=== PATIENT | male | born 1970 | race Two or more races ===

== ENCOUNTER 2020-07-06 18:09 | Emergency (ER) | payer SELFPAY ==
--- NOTE | 2020-07-06 18:15 | EDM.PDOC ---
ED HPI GENERAL MEDICAL PROBLEM - General Chief Complaint: General Stated Complaint: DEHYDRATION Time Seen by Provider: 07/06/20 18:15 Source of Information: Reports: Patient History Limitations: Reports: No Limitations - History of Present Illness INITIAL COMMENTS - FREE TEXT/NARRATIVE: HISTORY AND PHYSICAL: History of present illness: Patient is a 49-year-old female who presents to the emergency room with complaints of generalized abdominal pain, chills, "cold head" and diaphoresis. States over the past few days he has not been able to have a bowel movement, took some laxatives and states he had a small amount of stool over the past two days. Today started to experience chills throughout his body and he "felt very very cold" (touching his stomach and states it goes up to his head). Patient does have some mild nausea without vomiting. EMS gave Zofran in route. Patient denies any headache, change in vision, syncope or near syncope. Denies any chest pain, back pain, shortness of breath or cough. Denies any dysuria, nor blood in urine or stool. Patient has been eating and drinking appropriately. [employer] translation services was used for communication purposes: [place] speaking Review of systems: As per history of present illness and below otherwise all systems reviewed and negative. Past medical history: As per history of present illness and as reviewed below otherwise noncontributory. Surgical history: As per history of present illness and as reviewed below otherwise noncontributory. Social history: See social history for further information Family history: As per history of present illness and as reviewed below otherwise noncontributory. Physical exam: General: Well developed and well nourished 49 year old female. Alert and orientated x 3. Nontoxic in appearance and in no acute distress. Vital signs are stable and have been reviewed by me. Nursing notes were reviewed. HEENT: Atraumatic, normocephalic, pupils equal and reactive bilaterally, negative for conjunctival pallor or scleral icterus, mucous membranes moist, TMs normal bilaterally, throat clear, neck supple, nontender, trachea midline. No drooling or trismus noted. No meningeal signs. No hot potato voice noted. Lungs: Clear to auscultation bilaterally. No wheezes, rales, or rhonchi. Chest nontender. Normal work of breathing, no accessory muscles used. Heart: S1S2, regular rate and rhythm without overt murmur, gallops, or rubs. No JVD. No peripheral edema Abdomen: Soft, nondistended, nontender. Normoactive bowel sounds. Negative for masses or costovertebral tenderness. Skin: Diaphoretic, intact, and warm to touch. No lesions or rashes noted. Hematologic: No petechiae or purpra. Mucosa appropriate color and normal nail bed color and refill. Extremities: Atraumatic, moves all extremities per self without difficulty or deficits, negative for cords or calf pain. Neurovascular unremarkable. Neuro: Awake, alert, oriented. Cranial nerves II through XII unremarkable. Cerebellum unremarkable. Motor and sensory unremarkable throughout. Exam nonfocal. Psychiatric: Mood and affect are appropriate. Normal thought process. Answering questions appropriately. Notes: *This patient was seen and evaluated during the 2019 SARS-CoV-2 novel coronavirus pandemic period. Community viral transmission is ongoing at time of this encounter and the emergency department is operating under pandemic response procedures. Patient states he has no current concern of his abdominal pain or his use of laxatives for his constipation. He states he has been eating and drinking without any problem and has had a bowel movement today. We will do basic lab work. He denies any alcohol use. Denies any [id number] prescribed medication use. Has not been around anyone who has been recently ill. Patient does have a leukocytosis of 19. No acute abnormality within the abdomen or pelvis. Patient was able to eat and drink while here. He states he feels improved and offers no current concerns. He has been up ambulating to the bathroom, laughing and joking with his friend at bedside. I did have Dr Thurman re-evaluate this patient, he is agreeable with plan of care. I have talked with the patient about today's findings, in addition to providing specific details for plan of care. Reassessment at the time of disposition demonstrates that the patient is in no acute distress. The patient is stable for discharge, counseling was provided and we discussed in great detail signs and symptoms that would prompt them to return to the Emergency Department. Medication, follow up and supportive care measures were reviewed and discussed. Voices understanding and is agreeable to plan of care. Denies any further questions or concerns at this time. Diagnostics: CBC, CMP, Lipase, UA, COVID, Lactic, BC x 2, Abd/pelvis CT Therapeutics: IV fluids Prescription: None Impression: Leukocytosis Chills Plan: 1. You were evaluated today on an emergent basis. You did have elevation in your WBC (concerning for infection) but your other labs and imaging was normal. Your CT scan of the abdomen was normal. If your symptoms should worsen, new symptoms develop or any of the signs and symptoms we discussed should arise please return to the emergency room or call 911 (if needed). 2. You can alternate Tylenol and ibuprofen as needed for pain and fever management. 3. We encourage you to follow up with your primary care provider and/or recommended specialist in the next few days for re-evaluation and further care/management. Definitive disposition and diagnosis as appropriate pending reevaluation and review of above. abdomen Pain Score (Numeric/FACES): 5 - Related Data Allergies Allergy/AdvReac Type Severity Reaction Status Date / Time No Known Allergies Allergy Verified 07/06/20 19:52 ED ROS GENERAL - Review of Systems Review Of Systems: Comprehensive ROS is negative, except as noted in HPI. ED EXAM, GENERAL - Physical Exam Exam: See Below (See dictation) Course - Vital Signs Last Recorded V/S: Last Vital Signs Temp 97.5 F 07/06/20 19:51 Pulse 109 H 07/06/20 19:51 Resp 18 07/06/20 19:51 BP 121/76 07/06/20 19:51 Pulse Ox 98 07/06/20 19:51 - Orders/Labs/Meds Orders: Active Orders 24 hr Category Date Time Status EKG 12 Lead [EKG Documentation Completion] [RC] STAT Care 07/06/20 18:12 Active CULTURE BLOOD [BC] Stat Lab 07/06/20 19:25 Received CULTURE BLOOD [BC] Stat Lab 07/06/20 19:33 Received Sodium Chloride 0.9% [Normal Saline] 1,000 ml Med 07/06/20 20:33 Active IV STAT Blood Culture x2 Reflex Set [OM.PC] Stat Oth 07/06/20 19:13 Ordered Medication Orders Sodium Chloride (Normal Saline) 1,000 mls @ 999 mls/hr IV STAT ONE Stop: 07/06/20 21:33 Last Admin: 07/06/20 20:52 Dose: 999 mls/hr Documented by: ANITA Labs: Laboratory Tests 07/06/20 07/06/20 07/06/20 Range/Units 18:15 18:15 18:15 WBC 19.81 H (4.0-11.0) K/uL RBC 4.43 L (4.50-5.90) M/uL Hgb 14.3 (13.0-17.0) g/dL Hct 41.8 (38.0-50.0) % MCV 94.4 (80.0-98.0) fL MCH 32.3 H (27.0-32.0) pg MCHC 34.2 (31.0-37.0) g/dL RDW Std Deviation 44.3 (28.0-62.0) fl RDW Coeff of [place]yle[place] 13 (11.0-15.0) % Plt Count 328 (150-400) K/uL MPV 10.50 (7.40-12.00) fL Neut % (Auto) 70.9 (48.0-80.0) % Lymph % (Auto) 20.8 (16.0-40.0) % [place] % (Auto) 6.8 (0.0-15.0) % Eos % (Auto) 1.1 (0.0-7.0) % Baso % (Auto) 0.4 (0.0-1.5) % Neut # (Auto) 14.0 H (1.4-5.7) K/uL Lymph # (Auto) 4.1 H (0.6-2.4) K/uL [place] # (Auto) 1.4 H (0.0-0.8) K/uL Eos # (Auto) 0.2 (0.0-0.7) K/uL Baso # (Auto) 0.1 (0.0-0.1) K/uL Nucleated RBC % 0.0 /100WBC Nucleated RBCs # 0 K/uL Lactate (0.20-2.00) mmol/L Sodium 139 (136-148) mmol/L Potassium 4.6 (3.5-5.1) mmol/L Chloride 104 (98-107) mmol/L Carbon Dioxide 23.7 (21.0-32.0) mmol/L BUN 29 H (7.0-18.0) mg/dL Creatinine 1.2 (0.8-1.3) mg/dL Est Cr Clr Drug Dosing TNP Estimated GFR (MDRD) > 60.0 ml/min Glucose 139 H (74-106) mg/dL Calcium 8.1 L (8.5-10.1) mg/dL Magnesium 2.2 (1.8-2.4) mg/dL Total Bilirubin 0.3 (0.2-1.0) mg/dL AST 12 L (15-37) IU/L ALT 30 (14-63) IU/L Alkaline Phosphatase 44 L (46-116) U/L Total Protein 6.2 L (6.4-8.2) g/dL Albumin 3.0 L (3.4-5.0) g/dL Globulin 3.2 (2.6-4.0) g/dL Albumin/Globulin Ratio 0.9 (0.9-1.6) Lipase 135 (73-393) U/L Urine Color Urine Appearance Urine pH (5.0-8.0) Ur Specific [place] (1.001-1.035) Urine Protein (NEGATIVE) mg/dL Urine Glucose (UA) (NEGATIVE) mg/dL Urine Ketones (NEGATIVE) mg/dL Urine Occult Blood (NEGATIVE) Urine Nitrite (NEGATIVE) Urine Bilirubin (NEGATIVE) Urine Urobilinogen (<2.0) EU/dL Ur Leukocyte Esterase (NEGATIVE) SARS-CoV-2 RNA (LUIS) (NEGATIVE) 07/06/20 07/06/20 07/06/20 Range/Units 18:33 19:33 20:18 WBC (4.0-11.0) K/uL RBC (4.50-5.90) M/uL Hgb (13.0-17.0) g/dL Hct (38.0-50.0) % MCV (80.0-98.0) fL MCH (27.0-32.0) pg MCHC (31.0-37.0) g/dL RDW Std Deviation (28.0-62.0) fl RDW Coeff of [place] (11.0-15.0) % Plt Count (150-400) K/uL MPV (7.40-12.00) fL Neut % (Auto) (48.0-80.0) % Lymph % (Auto) (16.0-40.0) % [place] % (Auto) (0.0-15.0) % Eos % (Auto) (0.0-7.0) % Baso % (Auto) (0.0-1.5) % Neut # (Auto) (1.4-5.7) K/uL Lymph # (Auto) (0.6-2.4) K/uL [place] # (Auto) (0.0-0.8) K/uL Eos # (Auto) (0.0-0.7) K/uL Baso # (Auto) (0.0-0.1) K/uL Nucleated RBC % /100WBC Nucleated RBCs # K/uL Lactate 1.5 (0.20-2.00) mmol/L Sodium (136-148) mmol/L Potassium (3.5-5.1) mmol/L Chloride (98-107) mmol/L Carbon Dioxide (21.0-32.0) mmol/L BUN (7.0-18.0) mg/dL Creatinine (0.8-1.3) mg/dL Est Cr Clr Drug Dosing Estimated GFR (MDRD) ml/min Glucose (74-106) mg/dL Calcium (8.5-10.1) mg/dL Magnesium (1.8-2.4) mg/dL Total Bilirubin (0.2-1.0) mg/dL AST (15-37) IU/L ALT (14-63) IU/L Alkaline Phosphatase (46-116) U/L Total Protein (6.4-8.2) g/dL Albumin (3.4-5.0) g/dL Globulin (2.6-4.0) g/dL Albumin/Globulin Ratio (0.9-1.6) Lipase (73-393) U/L Urine Color YELLOW Urine Appearance CLEAR Urine pH 7.0 (5.0-8.0) Ur Specific [place] 1.010 (1.001-1.035) Urine Protein NEGATIVE (NEGATIVE) mg/dL Urine Glucose (UA) NEGATIVE (NEGATIVE) mg/dL Urine Ketones TRACE H (NEGATIVE) mg/dL Urine Occult Blood NEGATIVE (NEGATIVE) Urine Nitrite NEGATIVE (NEGATIVE) Urine Bilirubin NEGATIVE (NEGATIVE) Urine Urobilinogen 0.2 (<2.0) EU/dL Ur Leukocyte Esterase NEGATIVE (NEGATIVE) SARS-CoV-2 RNA (LUIS) NEGATIVE (NEGATIVE) Meds: Medications Generic Name Dose Route Start Last Admin Trade Name Freq PRN Reason Stop Dose Admin Sodium Chloride 1,000 mls @ 999 mls/hr 07/06/20 20:33 07/06/20 20:52 Normal Saline IV 07/06/20 21:33 999 mls/hr STAT ONE Administration Discontinued Medications Generic Name Dose Route Start Last Admin Trade Name Geno PRN Reason Stop Dose Admin Sodium Chloride 1,000 mls @ 999 mls/hr 07/06/20 18:16 07/06/20 18:21 Normal Saline IV 07/06/20 19:16 999 mls/hr STAT ONE Administration Iopamidol 100 ml 07/06/20 19:52 07/06/20 19:53 Iopamidol 755 Mg/Ml 500 Ml Multipack Bottle IVPUSH 07/06/20 19:53 100 ml ONETIME STA Administration Departure - Departure Time of Disposition: 21:16 Disposition: Home, Self-Care 01 Clinical Impression: Chills Leukocytosis Qualifiers: Leukocytosis type: unspecified Qualified Code(s): D72.829 - Elevated white blood cell count, unspecified - Discharge Information Forms: ED Department Discharge Sepsis Event Note (ED) - Focused Exam Vital Signs: Vital Signs Temp Pulse Resp BP Pulse Ox 07/06/20 19:51 97.5 F 109 H 18 121/76 98 07/06/20 19:00 112 H 18 116/78 96 07/06/20 18:10 97.5 F 105 H 134/80 95 - My Orders Last 24 Hours: My Active Orders 07/06/20 19:13 Blood Culture x2 Reflex Set [OM.PC] Stat 07/06/20 19:25 CULTURE BLOOD [BC] Stat 07/06/20 19:33 CULTURE BLOOD [BC] Stat 07/06/20 20:33 Sodium Chloride 0.9% [Normal Saline] 1,000 ml IV STAT - Assessment/Plan Last 24 Hours: My Active Orders 07/06/20 19:13 Blood Culture x2 Reflex Set [OM.PC] Stat 07/06/20 19:25 CULTURE BLOOD [BC] Stat 07/06/20 19:33 CULTURE BLOOD [BC] Stat 07/06/20 20:33 Sodium Chloride 0.9% [Normal Saline] 1,000 ml IV STAT
[2020-07-06] MEDS ORDERED: Sodium Chloride 0.9% 1,000 ML IV ONE ×2 (18:16→20:33)
--- NOTE | 2020-07-06 18:26 | PCM.EKG ---
#1 Interpretation EKG Date: 07/06/20 Time: 18:12 Rhythm: NSR Rate (Beats/Min): 111 Gary: RAD-Right Gary Deviation P-Wave: Present QRS: Normal ST-T: Normal QT: Normal Comparison: NA - No Prior EKG EKG Interpretation Comments: Sinus Tachycardia
[2020-07-06 18:43] LABS: BLOOD UREA NITROGEN,BUN 29 mg/dL (7.0-18.0); CARBON DIOXIDE,CO2 23.7 mmol/L (21.0-32.0); CHLORIDE,CL 104 mmol/L (98-107); GLUCOSE RANDOM 139 mg/dL (74-106); POTASSIUM,K 4.6 mmol/L (3.5-5.1); SODIUM,NA 139 mmol/L (136-148)
--- NOTE | 2020-07-06 18:49 | CR ---
HISTORY: Chest pain. COMPARISON: None. FINDINGS: Frontal view of the chest. The lungs are clear. No evidence for pneumonia. Heart size and pulmonary vascularity within normal limits. No pleural effusion. Bones and soft tissues are within normal. Dictated by Sandie Rosenthal MD @ 07/06/2020 6:47:[address] Sandie Rosenthal @ Jul 06 2020 6:47PM
[2020-07-06] MEDS ORDERED: Iopamidol 755 MG/ML 500 ML Multipack Bottle IVPUSH STA (19:52)
--- NOTE | 2020-07-06 20:23 | CT ---
HISTORY: Abdominal pain. COMPARISON: None. TECHNIQUE: Axial images were obtained through the abdomen and pelvis following 100 cc of Isovue-370 intravenous contrast. FINDINGS: The lung bases are clear. The liver, spleen, pancreas, gallbladder, adrenal glands and kidneys are within normal. The bowel is normal in caliber. The appendix is normal. No lymphadenopathy or ascites. No acute inflammatory changes in the abdomen or pelvis. The bones within normal. IMPRESSION: No acute abnormality within the abdomen or pelvis. Please note that all CT scans at this facility use dose modulation, iterative reconstruction, and/or weight-based dosing when appropriate to reduce radiation dose to as low as reasonably achievable. Dictated by Sandie Rosenthal MD @ 07/06/2020 8:21:[address] Sandie Rosenthal @ Jul 06 2020 8:21PM
== END 2020-07-06 21:55 | disposition home or self-care (01) ==
LOC: EDSEX 18:09 → MW.ED 18:09
DX: D72.829 Elevated white blood cell count, unspecified (principal); R68.83 Chills (without fever); Z20.822 Contact with and (suspected) exposure to COVID-19
CPT/HCPCS: 36415; 71045; 74177; 80053; 81003; 83605; 83690; 83735; 85025; 87040; 87635; 93005; 99285; J7030; Q9967; 99284; U0002